=== PATIENT | male | born 2000 | race Two or more races ===

== ENCOUNTER 2024-03-05 06:30 | Emergency (ER) | payer OTHER, BC ==
[2024-03-05 06:46] LABS: BASOPHILS PERCENT AUTO 0.4 % (0.0-1.0); EOSINOPHILS PERCENT AUTO 0.6 % (0.0-6.0); IMMATURE GRAN ABSOLUTE AUTO 0.08 K/mm3 (0.00-0.05); IMMATURE GRAN PERCENT AUTO 1.7 % (0.0-0.4); LYMPHOCYTES ABSOLUTE AUTO 1.7 K/mm3 (1.0-4.8); LYMPHOCYTES PERCENT AUTO 34.4 % (24.0-44.0); MEAN CORPUSCULAR HEMOGLOBIN 31.3 pg (28.0-32.0); MEAN CORPUSCULAR HGB CONC 34.9 g/dl (32.0-36.0); MEAN CORPUSCULAR VOLUME 89.8 fl (83.0-99.0); MEAN PLATELET VOLUME 9.7 fl (9.4-12.4); MONOCYTES ABSOLUTE AUTO 0.3 K/mm3 (0.0-0.8); MONOCYTES PERCENT AUTO 6.6 % (0.0-8.0); NEUTROPHILS ABSOLUTE AUTO 2.7 K/mm3 (1.8-7.7); NEUTROPHILS PERCENT AUTO 56.3 % (41.0-71.0); PLATELET COUNT,PLT 250 K/mm3 (150-400); RED BLOOD CELL COUNT 4.79 M/mm3 (4.52-5.90); WHITE BLOOD CELL COUNT,WBC 4.82 K/mm3 (3.9-11.3)
[2024-03-05 07:24] LABS: A/G RATIO 1.6 (1-2); ALBUMIN 4.4 g/dl (3.4-5.0); ANION GAP 14.4 (5-15); BILIRUBIN TOTAL 0.7 mg/dL (0.2-1.0); CALCIUM 8.2 mg/dL (8.5-10.1); EST CRCL DRUG DOSING (CG) 93.71 mL/min; ETHANOL BLOOD MEDICAL 0.16 gm% (0.00); POTASSIUM,K 3.4 mEq/L (3.5-5.1); PROTEIN TOTAL,TP 7.2 g/dl (6.4-8.2)
[2024-03-05] MEDS: Sodium Chloride 0.9% 10 ML Syringe FLUSH PRN (07:24)
[2024-03-05] MEDS: Iopamidol 612 MG/ML 100 ML Bottle IVPUSH ONE (07:29)
[2024-03-05] MEDS: Diphtheria,Pertussis(Acell),Tetanus Vaccine 0.5 ML Syringe IM ONE (08:01)
[2024-03-05] MEDS: ceFAZolin 1 GM in Sodium Chloride 0.9% 50 ML IV ONE (08:02)
[2024-03-05] MEDS: Lidocaine 1% 10 ML MDV INJECT ONE (08:02)
== END 2024-03-05 11:55 | disposition home or self-care (01) ==
LOC: JD.ED 06:30
DX: S01.01XA Laceration without foreign body of scalp, initial encounter (principal); F10.129 Alcohol abuse with intoxication, unspecified; S01.81XA Laceration without foreign body of other part of head, initial encounter; M54.50 Low back pain, unspecified; M79.605 Pain in left leg; S60.221A Contusion of right hand, initial encounter; Z79.899 Other long term (current) drug therapy; Z23 Encounter for immunization; V49.40XA Driver injured in collision with unspecified motor vehicles in traffic accident, initial encounter
CPT/HCPCS: 12013; 36415; 70450; 70486; 71045; 71260; 72125; 72170; 73090; 73100; 73590; 73600; 74177; 80053; 80307; 83605; 85025; 90471; 90715; 93005; 96365; 99285; J0690; J3490; Q9967; 93010; 99284